=== PATIENT | male | born 1955 | race Caucasian/White ===

== ENCOUNTER 2019-01-18 10:49 | Emergency (ER) | payer BC ==
[2019-01-18 11:15] VITALS: BP 157/92
--- NOTE | 2019-01-18 11:44 | UC ---
Skin Complaint HPI - HPI Summary HPI Summary: ? tick bite right buttocks area x 7 days the area is red, tender to touch , pain is 1 out of 10 , nothing makes it better or worse no fever, no chills, no body / joint pain , no rash - History of Current Complaint Chief Complaint: UCS[facility] Time Seen by Provider: 01/18/19 11:31 Stated Complaint: RIGHT LEG - SKIN TICK Hx Obtained From: Patient Onset/Duration: Gradual Onset, Lasting Days - 7, Still Present Timing: Constant Onset Severity: Mild Pain Intensity: 1 Location: Other - right buttocks Character: Swelling, Pain, Redness, Raised Aggravating Factor(s): Nothing Alleviating Factor(s): Nothing Associated Signs & Symptoms: Positive: Negative. Negative: Weakness, Fever, Chills Related History: Insect Bite/Sting - Allergy/Home Medications Allergies/Adverse Reactions: Allergies Allergy/AdvReac Type Severity Reaction Status Date / Time No Known Allergies Allergy Verified 04/20/17 14:13 PMH/Surg Hx/FS Hx/Imm Hx Previously Healthy: Yes - Surgical History Surgical History: Yes Surgery Procedure, Year, and Place: right wrist fx at age 10yrs - Family History Known Family History: Negative: Diabetes - Social History Alcohol Use: Weekly Alcohol Amount: 1 Substance Use Type: None Smoking Status (MU): Former Smoker Review of Systems All Other Systems Reviewed And Are Negative: Yes Constitutional: Positive: Negative Skin: Positive: Negative Eyes: Positive: Negative ENT: Positive: Negative Is Patient Immunocompromised?: No Physical Exam Triage Information Reviewed: Yes Appearance: Well-Appearing, No Pain Distress, Well-Nourished Vital Signs: Initial Vital Signs Temp 98.6 F 01/18/19 11:10 Pulse 69 01/18/19 11:10 Resp 16 01/18/19 11:10 BP 157/92 01/18/19 11:10 Pulse Ox 99 01/18/19 11:10 Vital Signs Reviewed: Yes Eye Exam: Normal Eyes: Positive: Conjunctiva Clear ENT: Positive: Normal ENT inspection, Hearing grossly normal, Pharynx normal Neck: Positive: Supple, Nontender, No Lymphadenopathy Respiratory: Positive: Chest non-tender, Lungs clear, Normal breath sounds Cardiovascular: Positive: RRR, No Murmur, Pulses Normal Skin: Positive: Rashes - area of erythema right buttocks, mild tenderness, ? insect / tick bite Course/Dx - Diagnoses Provider Diagnosis: Insect bite, Elevated BP without diagnosis of hypertension Discharge - Sign-Out/Discharge Documenting (check all that apply): Patient Departure All imaging exams completed and their final reports reviewed: No Studies - Discharge Plan Condition: Stable Disposition: HOME Prescriptions: DOXYcycline CAP(*) [DOXYcycline 100MG CAP(*)] 100 mg PO BID #20 cap Patient Education Materials: Insect Bite or Sting (ED) Referrals: Lilliam Galo MD [Primary Care Provider] - If Needed Additional Instructions: elevated BP : please monitor your bp daily , follow up with your pcp in one week - Billing Disposition and Condition Condition: STABLE Disposition: Home
== END 2019-01-18 11:42 | disposition home or self-care (01) ==
LOC: UCCORT 10:49
DX: S30.860A Insect bite (nonvenomous) of lower back and pelvis, initial encounter (principal); W57.XXXA Bitten or stung by nonvenomous insect and other nonvenomous arthropods, initial encounter; Y92.9 Unspecified place or not applicable; R01.0 Benign and innocent cardiac murmurs; Z87.891 Personal history of nicotine dependence
CPT/HCPCS: 99212; G0463